=== PATIENT | female | born 1995 | race Caucasian/White ===

== ENCOUNTER 2017-08-20 08:12 | Emergency (ER) | payer SELFPAY ==
[2017-08-20 08:35] LABS: Bilirubin Negative (Negative); Blood, Urine Moderate (Negative); Clarity Clear (Clear); Glucose, Urine (Dipstick) Negative (Negative); Leukocyte Trace (Negative); Nitrite Negative (Negative); Protein, Urine (Dipstick) Negative (Neg-Trace); Specific Gravity, Urine 1.015 (1.005-1.030); Urobilinogen 0.2 mg/dL (0.2-1.0); pH, Urine 5.5 (5.0-9.0)
[2017-08-20 08:41] LABS: Bacteria/HPF 1+ HPF (None Seen); Pregnancy Test - Urine (BHCG) Negative (Negative); Pregu Control Background? CLEAR/WHITE (CLR/WHITE); Pregu Control Bar Appear? YES (CONTROL BAR); Specific Gravity 1.015 (1.002-1.036); Squamous Epithelial 0-3 HPF (0-3); WBC/HPF 0-3 HPF (0-3)
[2017-08-20] MEDS ORDERED: Morphine 4 MG/ML Carpuject ONE (08:54)
[2017-08-20] MEDS ORDERED: diphenhydrAMINE 50 MG/ML VIAL ONE (08:55)
--- NOTE | 2017-08-20 10:29 | CT ---
CT ABDOMEN AND PELVIS WITHOUT CONTRAST: DATE: 08/20/17. FINDINGS: Spiral CT of the abdomen and pelvis was performed for evaluation of flank pain. Axial slices were ac quired, then coronal reconstructions were done. There is a 4 mm stone at the right UVJ causing mild right hydronephrosis. There appears to be a sma ll cyst in the upper pole of the left kidney that either contains calcification in it or associated with it. The lung bases are clear. The liver, spleen, pancreas, adrenal glands, gallbladder, and abdominal a aditya appear normal within the limitations of a noncontrast study. The bowel is unremarkable, except for an abundance of fecal material. There is no obstruction, mo l wall thickening, or inflammatory change. CT of the pelvis was remarkable only for the distal right ureteral calculus. There were no pelvic m asses or inflammatory changes. No free fluid was seen. IMPRESSION: 1. A 4 mm distal right ureteral calculus at the right ureterovesical junction. 2. Small cyst in the upper pole of the left kidney that either contains or has a calcification asso ciated with it. POS: HOME
== END 2017-08-20 09:32 | disposition home or self-care (01) ==
LOC: BURERS 08:12
DX: N13.2 Hydronephrosis with renal and ureteral calculous obstruction (principal)
CPT/HCPCS: 74176; 81003; 81015; 81025; 87086; 96374; 96375; J1200; J2270